=== PATIENT | male | born 1965 | race Caucasian/White ===

== ENCOUNTER → 2018-10-14 10:40 | Outpatient (CLI) | payer OTHER ==
[2013-06-18 08:57] VITALS: BMI 26.2
[~2018-10-14 10:40] MED LIST: FLEXERIL10 MG PO; MOBIC7.5 MG PO; NORCO 10/325 TA1 TA1 PO
[2018-10-14 12:35] LABS: C-REACTIVE PROTEIN 0.3 mg/dL (0.0-0.9); CALC OSMOLALITY 277 mosm/kg (275-300); CALCIUM 9.1 mg/dL (8.5-10.1); CARBON DIOXIDE 26.9 mmol/L (21.0-32.0); CHLORIDE - SERUM 104 mmol/L (98-107); GLUCOSE 82 mg/dL (74-106); POTASSIUM - SERUM 4.2 mmol/L (3.5-5.1); SODIUM 139 mmol/L (136-145); UREA NITROGEN 16 mg/dL (7-18); VANCOMYCIN - TROUGH 12.2 ug/mL (10.0-20.0); eGFR NON AFRICAN AMERICAN 82 mL/min (90-120)
[2018-10-14 13:42] LABS: ERYTHROCYTE SEDIMENTATION RATE 21 mm/hr (0-20)
== END | disposition home or self-care (01) ==
LOC: D.LABREF 10:40
PROVIDERS: ATTEND Orthopaedic Surgery
DX: M00.062 Staphylococcal arthritis, left knee (principal)

== ENCOUNTER → 2018-10-20 10:54 | Outpatient (CLI) | payer OTHER ==
[2013-06-18 08:57] VITALS: BMI 26.2
[2018-10-20 12:10] LABS: C-REACTIVE PROTEIN 0.6 mg/dL (0.0-0.9); CALC OSMOLALITY 279 mosm/kg (275-300); CALCIUM 9.1 mg/dL (8.5-10.1); CARBON DIOXIDE 27.9 mmol/L (21.0-32.0); CHLORIDE - SERUM 102 mmol/L (98-107); GLUCOSE 87 mg/dL (74-106); POTASSIUM - SERUM 4.4 mmol/L (3.5-5.1); SODIUM 140 mmol/L (136-145); UREA NITROGEN 19 mg/dL (7-18); VANCOMYCIN - RANDOM 13.8 ug/mL (10.0-20.0); eGFR NON AFRICAN AMERICAN 82 mL/min (90-120)
[2018-10-20 12:51] LABS: ERYTHROCYTE SEDIMENTATION RATE 19 mm/hr (0-20)
== END | disposition home or self-care (01) ==
LOC: D.LABREF 10:54
PROVIDERS: ATTEND Orthopaedic Surgery
DX: M00.062 Staphylococcal arthritis, left knee (principal)

== ENCOUNTER → 2018-10-27 11:40 | Outpatient (CLI) | payer OTHER ==
[2013-06-18 08:57] VITALS: BMI 26.2
[2018-10-27 12:14] LABS: C-REACTIVE PROTEIN 1.1 mg/dL (0.0-0.9); CALC OSMOLALITY 264 mosm/kg (275-300); CALCIUM 9.2 mg/dL (8.5-10.1); CARBON DIOXIDE 28.5 mmol/L (21.0-32.0); CHLORIDE - SERUM 101 mmol/L (98-107); GLUCOSE 82 mg/dL (74-106); POTASSIUM - SERUM 4.1 mmol/L (3.5-5.1); SODIUM 132 mmol/L (136-145); UREA NITROGEN 14 mg/dL (7-18); VANCOMYCIN - TROUGH 11.7 ug/mL (10.0-20.0); eGFR NON AFRICAN AMERICAN 82 mL/min (90-120)
[2018-10-27 13:48] LABS: ERYTHROCYTE SEDIMENTATION RATE 5 mm/hr (0-20)
== END | disposition home or self-care (01) ==
LOC: D.LABREF 11:40
PROVIDERS: ATTEND Orthopaedic Surgery
DX: M00.00 Staphylococcal arthritis, unspecified joint (principal); Z79.2 Long term (current) use of antibiotics

== ENCOUNTER → 2018-11-03 16:18 | Outpatient (CLI) | payer OTHER ==
[2013-06-18 08:57] VITALS: BMI 26.2
[2018-11-03 18:23] LABS: ANION GAP 17.4 mmol/L (8-16); C-REACTIVE PROTEIN 0.3 mg/dL (0.0-0.9); CALCIUM 8.9 mg/dL (8.5-10.1); CARBON DIOXIDE 22.2 mmol/L (21.0-32.0); CREATININE - SERUM 1.1 mg/dL (0.6-1.3); POTASSIUM - SERUM 3.6 mmol/L (3.5-5.1); VANCOMYCIN - RANDOM 12.5 ug/mL (10.0-20.0)
[2018-11-03 19:03] LABS: ERYTHROCYTE SEDIMENTATION RATE 2 mm/hr (0-20)
== END | disposition home or self-care (01) ==
LOC: D.LABREF 16:18
PROVIDERS: ATTEND Orthopaedic Surgery
DX: Z51.81 Encounter for therapeutic drug level monitoring (principal); Z79.2 Long term (current) use of antibiotics; M13.80 Other specified arthritis, unspecified site

== ENCOUNTER → 2018-11-10 13:30 | Outpatient (CLI) | payer OTHER ==
[2013-06-18 08:57] VITALS: BMI 26.2
[2018-11-10 16:35] LABS: ERYTHROCYTE SEDIMENTATION RATE 2 mm/hr (0-20)
[2018-11-10 16:52] LABS: CALC OSMOLALITY 276 mosm/kg (275-300); CALCIUM 8.7 mg/dL (8.5-10.1); CHLORIDE - SERUM 103 mmol/L (98-107); POTASSIUM - SERUM 4.4 mmol/L (3.5-5.1); SODIUM 140 mmol/L (136-145); UREA NITROGEN 12 mg/dL (7-18); eGFR NON AFRICAN AMERICAN 82 mL/min (90-120)
[2018-11-10 16:54] LABS: GLUCOSE 68 mg/dL (74-106)
== END | disposition home or self-care (01) ==
LOC: D.LABREF 13:30
PROVIDERS: ATTEND Orthopaedic Surgery
DX: M00.9 Pyogenic arthritis, unspecified (principal)

== ENCOUNTER → 2018-11-13 13:23 | Outpatient (CLI) | payer OTHER ==
[2013-06-18 08:57] VITALS: BMI 26.2
[2018-11-13 15:35] LABS: CALC OSMOLALITY 284 mosm/kg (275-300); CARBON DIOXIDE 28.1 mmol/L (21.0-32.0); CHLORIDE - SERUM 105 mmol/L (98-107); CREATININE - SERUM 0.9 mg/dL (0.6-1.3); GLUCOSE 71 mg/dL (74-106); POTASSIUM - SERUM 4.7 mmol/L (3.5-5.1); SODIUM 143 mmol/L (136-145); UREA NITROGEN 17 mg/dL (7-18); VANCOMYCIN - TROUGH 11.1 ug/mL (10.0-20.0); eGFR NON AFRICAN AMERICAN > 90 mL/min (90-120)
== END | disposition home or self-care (01) ==
LOC: D.LABREF 13:23
PROVIDERS: ATTEND Orthopaedic Surgery
DX: M00.9 Pyogenic arthritis, unspecified (principal)

== ENCOUNTER → 2018-11-17 09:27 | Outpatient (CLI) | payer OTHER ==
[2013-06-18 08:57] VITALS: BMI 26.2
[2018-11-17 09:53] LABS: C-REACTIVE PROTEIN 0.5 mg/dL (0.0-0.9); CALC OSMOLALITY 278 mosm/kg (275-300); CALCIUM 8.7 mg/dL (8.5-10.1); CARBON DIOXIDE 27.5 mmol/L (21.0-32.0); CHLORIDE - SERUM 104 mmol/L (98-107); POTASSIUM - SERUM 4.1 mmol/L (3.5-5.1); SODIUM 139 mmol/L (136-145); UREA NITROGEN 13 mg/dL (7-18); VANCOMYCIN - TROUGH 21.6 ug/mL (10.0-20.0); eGFR NON AFRICAN AMERICAN 82 mL/min (90-120)
[2018-11-17 09:54] LABS: GLUCOSE 110 mg/dL (74-106)
[2018-11-17 10:35] LABS: ERYTHROCYTE SEDIMENTATION RATE 4 mm/hr (0-20)
== END | disposition home or self-care (01) ==
LOC: D.LABREF 09:27
PROVIDERS: ATTEND Orthopaedic Surgery
DX: M00.9 Pyogenic arthritis, unspecified (principal)

== ENCOUNTER → 2020-12-22 07:33 | Outpatient (CLI) | payer OTHER ==
[2013-06-18 08:57] VITALS: BMI 26.2
== END | disposition home or self-care (01) ==
LOC: D.CT 07:33
PROVIDERS: ATTEND Family Medicine
DX: I65.29 Occlusion and stenosis of unspecified carotid artery (principal)

== ENCOUNTER → 2021-01-06 08:29 | Outpatient (CLI) | payer OTHER ==
[2013-06-18 08:57] VITALS: BMI 26.2
== END | disposition home or self-care (01) ==
LOC: D.HCCARDIO 08:29
PROVIDERS: ATTEND Internal Medicine Interventional Cardiology
DX: I20.9 Angina pectoris, unspecified (principal)